=== PATIENT | male | born 1970 | race Caucasian/White ===

== ENCOUNTER 2024-07-21 02:55 | Emergency (ER) | payer MEDICAID ==
[~2024-07-21] VITALS: Ht 185.4 cm; Wt 106.0 kg
[2024-07-21 02:55] VITALS: BP 123/95; PULSE 87; RESP 16; O2SAT 96
[2024-07-21] MEDS ORDERED: CLIN1CAP70 PO (03:41)
== END 2024-07-21 03:47 | disposition home or self-care (01) ==
LOC: ER 02:55
DX: L03.012 Cellulitis of left finger (principal); W57.XXXA Bitten or stung by nonvenomous insect and other nonvenomous arthropods, initial encounter; Y93.89 Activity, other specified; Y92.89 Other specified places as the place of occurrence of the external cause; Y99.8 Other external cause status